=== PATIENT | female | born 1985 | race Caucasian/White ===

== ENCOUNTER 2017-11-11 12:01 | Emergency (ER) | payer OTHER ==
--- NOTE | 2017-11-11 12:09 | CPEKG ---
Heart Rate: 73 RR Interval: 822 P-R Interval: 176 QRSD Interval: 78 QT Interval: 368 QTC Interval: 406 P Le [place]: 74 QRS [place] Center: 25 T Wave Le Center: 5 EKG Severity - NORMAL ECG - EKG Impression: SINUS RHYTHM Electronically Signed By: Zahira Summers 11-Nov-2017 15:17:54
--- NOTE | 2017-11-11 12:45 | EDPHY ---
H & P Time Seen by Provider: 11/11/17 12:21 HPI/ROS: Chief complaint. Near syncope HPI. 32-year-old female 20 weeks here by EMS with near syncope. She has had flu symptoms for probably 1 week consisting of runny nose, cough, congestion. Possible subjective fever. She has been nauseated for the past several days. At home she felt shaky and weak and then went downstairs the kitchen to get something to eat tender symptoms got worse. He she felt like her vision was going in and out. She laid down on the floor and felt somewhat better. She did feel slight shortness of breath with lying down. No chest discomfort. She did have sense of palpitations. Her symptoms are better now but still feels slightly shaky. She has been having pressure in her upper abdomen and low back pain but no lower abdominal cramping or vaginal bleeding. Again 20 weeks . 1/para 0. She did have a syncopal episode as a child. ROS Constitutional. no fever/chills, no weakness Eyes. Vision was going in and out with symptoms ENT. Congestion Cardiovascular. no chest pain Respiratory. Slight shortness of breath and cough recently Abdominal. no abdominal pain, no nausea/vomiting, no diarrhea . no problems urinating MS. no calf pain/swelling, no neck/back pain, no joint pain Skin. no rash Lymph. no swollen glands Neuro. Near syncope Past Medical/Surgical History: eating disorder in past, dyslipidemia Social History: , non smoker, no alcohol Smoking Status: Never smoked Physical Exam: General Appearance: Alert well-developed female mild distress vital signs are stable Eyes: Pupils equal and round no pallor or injection. ENT, tympanic membranes are normal. Pharynx without injection. Mucous membranes are moist Respiratory: There are no retractions, lungs are clear to auscultation. Cardiovascular: Regular rate and rhythm. Gastrointestinal: Abdomen is soft and nontender, no masses, bowel sounds normal. Neurological: Awake and alert, sensory and motor exams grossly normal. Skin: Warm and dry, no rashes. Musculoskeletal: Neck is supple nontender. Extremities symmetrical, full range of motion. Psychiatric: Patient is oriented X 3, there is no agitation. Constitutional: Initial Vital Signs Heart Rate 72 11/11/17 12:07 Respiratory Rate 16 11/11/17 12:07 Blood Pressure 109/66 11/11/17 12:07 O2 Sat (%) 100 11/11/17 12:07 O2 Delivery Mode Room Air Allergies/Adverse Reactions: Penicillins Allergy (Verified 07/02/16 14:58) Home Medications: Medication Instructions Recorded Doxycycline Calcium 07/02/16 Medical Decision Making - Diagnostics EKG Interpretation: EKG interpreted by me shows normal sinus rhythm with normal interval and axis. QRS is normal there is no significant ST elevation or depression. There is no arrhythmia. No Q 3 T3 pattern. Rate is 73 Procedures: IV normal saline, monitor heart tones 140 ED Course/Re-evaluation: 1:50 p.m. patient is stable on re-examine. No complaints. After 1 L no urge to urinate. 2nd L is hung. 2:30 p.m. re-evaluation. Patient has no symptoms. The patient, her , and I discussed laboratory evaluation and EKG findings. We discussed treatment plan including criteria for return and importance of follow-up and further evaluation. They expressed understanding and agreement Differential Diagnosis: Near syncope in the 20 week woman. I have considered infection, arrhythmia, anemia, electrolyte abnormalities, demise. EKG is normal. H& H are normal. Electrolytes are normal. heart rate 140 - Data Points Laboratory Results: Laboratory Results 11/11/17 12:00 11/11/17 12:00 11/11/17 11/11/17 11/11/17 14:15 12:16 12:00 WBC RBC Hgb Hct MCV MCH MCHC RDW Plt Count MPV Neut % (Auto) Lymph % (Auto) Denali % (Auto) Eos % (Auto) Baso % (Auto) Nucleat RBC Rel Count Absolute Neuts (auto) Absolute Lymphs (auto) Absolute Monos (auto) Absolute Eos (auto) Absolute Basos (auto) Absolute Nucleated RBC Immature Gran % Immature Gran # Sodium 138 mEq/L mEq/L (135-145) Potassium 4.2 mEq/L mEq/L (3.5-5.2) Chloride 107 mEq/L mEq/L (97-110) Carbon Dioxide 19 mEq/l L mEq/l (22-31) Anion Gap 12 mEq/L mEq/L (8-16) BUN 5 mg/dL L mg/dL (7-23) Creatinine 0.6 mg/dL mg/dL (0.6-1.0) Estimated GFR > 60 Glucose 111 mg/dL H mg/dL (70-100) Calcium 9.5 mg/dL mg/dL (8.5-10.4) Urine Color YELLOW Urine Appearance CLEAR Urine pH 8.0 H (5.0-7.5) Ur Specific Logan 1.005 (1.002-1.030) Urine Protein NEGATIVE (NEGATIVE) Urine Ketones NEGATIVE (NEGATIVE) Urine Blood NEGATIVE (NEGATIVE) Urine Nitrate NEGATIVE (NEGATIVE) Urine Bilirubin NEGATIVE (NEGATIVE) Urine Urobilinogen NEGATIVE EU EU (0.2-1.0) Ur Leukocyte Esterase NEGATIVE (NEGATIVE) Urine RBC 1-3 /hpf /hpf (0-3) Urine WBC 1-3 /hpf /hpf (0-3) Ur Epithelial Cells TRACE /lpf /lpf (NONE-1+) Urine Bacteria TRACE /hpf H /hpf (NONE SEEN) Urine Mucus TRACE /lpf /lpf (NONE-1+) Urine Glucose NEGATIVE (NEGATIVE) Nasal Influenza A PCR NEGATIVE FOR FLU A (NEGATIVE) Nasal Influenza B PCR NEGATIVE FOR FLU B (NEGATIVE) 11/11/17 12:00 WBC 6.48 10^3/uL 10^3/uL (3.80-9.50) RBC 4.07 10^6/uL L 10^6/uL (4.18-5.33) Hgb 13.1 g/dL g/dL (12.6-16.3) Hct 37.6 % L % (38.0-47.0) MCV 92.4 fL fL (81.5-99.8) MCH 32.2 pg pg (27.9-34.1) MCHC 34.8 g/dL g/dL (32.4-36.7) RDW 12.9 % % (11.5-15.2) Plt Count 232 10^3/uL 10^3/uL (150-400) MPV 11.0 fL fL (8.7-11.7) Neut % (Auto) 73.8 % % (39.3-74.2) Lymph % (Auto) 20.8 % % (15.0-45.0) Denali % (Auto) 4.3 % L % (4.5-13.0) Eos % (Auto) 0.5 % L % (0.6-7.6) Baso % (Auto) 0.3 % % (0.3-1.7) Nucleat RBC Rel Count 0.0 % % (0.0-0.2) Absolute Neuts (auto) 4.78 10^3/uL 10^3/uL (1.70-6.50) Absolute Lymphs (auto) 1.35 10^3/uL 10^3/uL (1.00-3.00) Absolute Monos (auto) 0.28 10^3/uL L 10^3/uL (0.30-0.80) Absolute Eos (auto) 0.03 10^3/uL 10^3/uL (0.03-0.40) Absolute Basos (auto) 0.02 10^3/uL 10^3/uL (0.02-0.10) Absolute Nucleated RBC 0.00 10^3/uL 10^3/uL (0-0.01) Immature Gran % 0.3 % % (0.0-1.1) Immature Gran # 0.02 10^3/uL 10^3/uL (0.00-0.10) Sodium Potassium Chloride Carbon Dioxide Anion Gap BUN Creatinine Estimated GFR Glucose Calcium Urine Color Urine Appearance Urine pH Ur Specific Logan Urine Protein Urine Ketones Urine Blood Urine Nitrate Urine Bilirubin Urine Urobilinogen Ur Leukocyte Esterase Urine RBC Urine WBC Ur Epithelial Cells Urine Bacteria Urine Mucus Urine Glucose Nasal Influenza A PCR Nasal Influenza B PCR Medications Given: Discontinued Medications Sodium Chloride (Ns) 1,000 mls @ 0 mls/hr IV ONCE ONE; Wide Open PRN Reason: Protocol Stop: 11/11/17 13:56 Last Admin: 11/11/17 14:04 Dose: 1,000 mls Departure - Departure Disposition: Home, Routine, Self-Care Clinical Impression: Near syncope Condition: Good Instructions: Near Syncope (ED) Additional Instructions: Easy activity today. Regular eating and drinking. Return for further episodes of nearly passing out, chest discomfort, trouble breathing. Recheck in 1-2 days for any continuing symptoms Referrals: Patient,NotPresent [Unknown] - As per Instructions
[2017-11-11 12:53] LABS: PLATELET COUNT 232 10^3/uL (150-400)
[2017-11-11] MEDS ORDERED: NS 1,000 ML IV ONE (13:55)
[2017-11-11 14:51] VITALS: BP 98/53; PULSE 79; RESP 18; TEMP 98.6; O2SAT 98
== END 2017-11-11 14:51 | disposition home or self-care (01) ==
LOC: EDUNIT#
DX: O99.89 Other specified diseases and conditions complicating pregnancy, childbirth and the puerperium (principal); R55 Syncope and collapse; E86.0 Dehydration; Z3A.20 20 weeks gestation of pregnancy

== ENCOUNTER → 2017-11-19 | Outpatient (CLI) | payer OTHER | LOC: FIMAGING 11:08 | PROVIDERS: ATTEND Obstetrics & Gynecology | DX: O09.522 Supervision of elderly multigravida, second trimester (principal); Z3A.20 20 weeks gestation of pregnancy ==

== ENCOUNTER 2017-12-16 17:21 | Observation (INO) | payer OTHER ==
[2017-12-16 17:27] VITALS: BP 111/78; PULSE 91; RESP 16; TEMP 98.6; O2SAT 98
--- NOTE | 2017-12-16 17:37 | EDPHY ---
H & P Stated Complaint: slip and fall frm stdg onto back then down 5 steps, 26 wks preg Time Seen by Provider: 12/16/17 17:37 - Personal History LMP (Females 10-55): - Medical/Surgical History Hx Asthma: No Hx Chronic Respiratory Disease: No Hx Diabetes: No Hx Cardiac Disease: No Hx Renal Disease: No Hx Cirrhosis: No Hx Alcoholism: No Hx HIV/AIDS: No Hx Splenectomy or Spleen Trauma: No Other PMH: denies - Social History Smoking Status: Never smoked Constitutional: Initial Vital Signs Temperature (C) 37.0 C 12/16/17 17:25 Heart Rate 91 12/16/17 17:25 Respiratory Rate 16 12/16/17 17:25 Blood Pressure 111/78 12/16/17 17:25 O2 Sat (%) 98 12/16/17 17:25 O2 Delivery Mode Room Air Allergies/Adverse Reactions: Penicillins Allergy (Verified 07/02/16 14:58) Home Medications: Medication Instructions Recorded NK [No Known Home Meds] 12/16/17 Medical Decision Making ED Course/Re-evaluation: CHIEF COMPLAINT: Fell down stairs, 26 weeks HISTORY OF PRESENT ILLNESS: The patient is a 25 y/o female, who is 26 weeks , arriving at the [facility] after she slipped down several icy stairs today. She landed on her lower back and hit in between her shoulder blades. She is also having mild left-sided back pressure. No difficulty walking, abdominal cramping, chest pain, shortness of breath, urinary or bowel complaints. REVIEW OF SYSTEMS: A 10 point review of systems was performed and is negative with the exception of the elements mentioned in the history of present illness. PHYSICAL EXAM: HR, BP, O2 Sat, RR. Temp noted General Appearance: Alert, well hydrated, appropriate, and non-toxic appearing. Head: Atraumatic without scalp tenderness or obvious injury Eyes: Pupils equal, round, reactive to light and accommodation, EOMI, no trauma , no injection. Ears: Clear bilaterally, no perforation, normal landmarks Nose: Atraumatic, no rhinorrhea, clear. Throat: There is no erythema or exudates, no lesions, normal tonsils, mucus membranes moist. Neck: Supple, nontender, no lymphadenopathy. Respiratory: No retractions, no distress, no wheezes, and no accessory muscle use. Lungs are clear to auscultation bilaterally. Cardiovascular: Regular rate and rhythm, no murmurs, rubs, or gallops. Good capillary refill all extremities. Gastrointestinal: Abdomen is soft, nontender, non-distended, no masses, no rebound, no guarding, no peritoneal signs. Back: Mild mid lumbar tenderness and tenderness in between shoulder blades Musculoskeletal: Normal active ROM of all extremities, atraumatic. Neurological: Alert, appropriate, and interactive. Non-focal neuro. Skin: No rashes, good turgor, no nodules on palpation. Past medical history: Denies Past surgical history: Denies Family history: Denies Social history: at bedside, Grad Student at , lives in [place] DIFFERENTIAL DIAGNOSIS: The differential diagnosis for the patient's back pain included but was not limited to musculoskeletal pain, epidural abscess, herniated disk, spinal fracture, and intra-abdominal causes including urinary system. MEDICAL DECISION MAKING: The patient is a 25 y/o female, who is 26 weeks , arriving at the [facility] after she slipped down several icy stairs today. On exam she has mild mid lumbar tenderness and tenderness in between shoulder blades. No abdominal cramping and non-focal neuro exam. She will be sent to tocographic monitoring in the labor and delivery unit to ensure the fetus is healthy. Reassessed patient; she is comfortable with going to L&D for tocographic monitoring. Departure - Departure Disposition: [facility] Inpatient Acute Clinical Impression: Fall Qualifiers: Encounter type: initial encounter Qualified Code(s): W19.XXXA - Unspecified fall, initial encounter Qualifiers: Weeks of gestation: 26 weeks Qualified Code(s): Z3A.26 - 26 weeks gestation of Condition: Fair Referrals: Amber Benavides MD [Medical Doctor] - As per Instructions Report Scribed for: Hermilo Chaney Report Scribed by: Falguni Diane Date of Report: 12/16/17 Time of Report: 17:38
--- NOTE | 2017-12-16 19:30 | OBPROG ---
Labor Progress Note Assessment/Plan: Assessment:monitoring for a 25 week denies leaking bleeding and cramping needs a type and screen KB consult dr. Raimundo Schaeffer on POC fu saturday with provider. regular diet hydrate irritability contractions noted denies menstrual cramping feeling some back pain on left side lower after the fall Plan:kb/ type and screen/ offered tylenol for pain relief. declined 12/16/17 19:25 Subjective/Intrapartum Course: 12/16/17 19:23 Feeling achy after a fall today at 1600. denies leaking bleeding, cramping. States feeling positive movement. Objective: Temp Pulse Resp BP Pulse Ox 37.0 C 91 16 111/78 98 12/16/17 17:25 12/16/17 17:25 12/16/17 17:25 12/16/17 17:25 12/16/17 17:25 - Contraction Pattern Assessment Current Contraction Pattern: Irregular - FHR Assessment Walton FHR (bpm): 135 FHR Pattern Variability: Moderate - Physical Exam General Appearance: WD/WN, alert, no apparent distress Respiratory: chest non-tender, lungs clear, normal breath sounds Cardiac/Chest: regular rate, rhythm Abdomen: normal bowel sounds Extremities: normal range of motion, Mykel's sign (negative bilaterally) DTR- Lower Extremities: Knee (R): 1+, Knee (L): 1+ (no clonus) Back: Normal inspection Skin: normal color, warm/dry Neuro/Psych: no motor/sensory deficits, alert, normal mood/affect, oriented x 3 ICD10 Worksheet Patient Problems: Problems Problem Status Onset Fall Acute Acute
--- NOTE | 2017-12-16 20:08 | GHP ---
[f rep st] HISTORY AND PHYSICAL DATE OF ADMISSION: 12/16/2017 HISTORY OF PRESENT ILLNESS: The patient is a 3, para 0, A2, living 0, [facility], with complaints of falling at 1600 at the [facility]. States fell to her left upper back, CVA and flank area. Feeling achy in that area. Denies leaking, bleeding, cramping. EDC is 04/08/2018, which gives her a gestational age of 23.6 weeks. States that she has been receiving routine care through Dr. Benavides in [place]. Her next appointment was not supposed to be until December. The patient will follow up on Saturday of this week. MEDICAL HISTORY: Patient is having occasional irritability. SURGICAL HISTORY: Denies. FAMILY HISTORY: Denies. GYNECOLOGICAL HISTORY: Denies. HISTORY: States had a vasovagal response during the . Denies other difficulties. States feeling positive movement. Able to trace heart tones and looks adequate for 25 weeks. SOCIAL HISTORY: Patient is to [place]. Denies tobacco or drug use. ALLERGIES: Penicillin. MEDICATIONS: Taken routinely are vitamins. The patient had flu vaccine in June. PHYSICAL EXAMINATION: GENERAL: Patient is awake, alert, oriented x3. LUNGS: Clear bilaterally. ABDOMEN: Bowel sounds are positive in all 4 quadrants. EXTREMITIES: DTRs are 1+ bilaterally. Homans sign is negative. Clonus is negative. PLAN OF CARE: 1. Monitor for a total of 4 hours. 2. Blood type and screen as well as KB. 3. Hydrate. 4. Consult Dr. Gissel Schaeffer on plan of care. /[id number]/MODL MTDD
[2017-12-16] MEDS ORDERED: ACETAMINOPHEN 160 MG/5 ML UDCUP PO ONE (21:01)
[2017-12-16] MEDS ORDERED: ACETAMINOPHEN 500 MG TAB PO ONE (21:06)
== END 2017-12-16 22:00 | disposition home or self-care (01) ==
LOC: FLD 18:27
PROVIDERS: ADMIT Advanced Practice Midwife; ATTEND Advanced Practice Midwife
DX: O9A.212 Injury, poisoning and certain other consequences of external causes complicating pregnancy, second trimester (principal); W10.8XXA Fall (on) (from) other stairs and steps, initial encounter; Z3A.26 26 weeks gestation of pregnancy; Y92.214 College as the place of occurrence of the external cause
CPT/HCPCS: G0378 ×2